=== PATIENT | female | born 1990 | race Caucasian/White ===

== ENCOUNTER → 2017-06-07 08:51 | Outpatient (CLI) | payer OTHER, SELFPAY ==
[2017-06-07 11:20] LABS: Glucose Challenge Gest 1H 50g 68 mg/dL (70-140)
[2017-06-07 11:43] LABS: Hematocrit 37.2 % (37-47); Hemoglobin 12.5 g/dl (12.0-15.0); Mean Corp Hgb Conc 33.6 g/gl (32-36); Mean Corpuscular Hgb 31.7 pg (27.0-32.0); Mean Corpuscular Volume 94.4 fL (81-99); Mean Platelet Vol. 10.7 fl (6.2-12.0); Platelet Count 161 K/mm3 (150-450); RBC Distribution Width CV 13.4 % (11.6-14.6); RBC Distribution Width SD 44.8 fl (35.1-43.9); Red Blood Count 3.94 M/mm3 (4.2-5.4); White Blood Count 5.9 K/mm3 (4.4-11.0)
[2017-06-07 11:47] LABS: Scan Indicated on CBC? Y/N NO
== END ==
PROVIDERS: Visit Provider Obstetrics & Gynecology
DX: Z34.83 Encounter for supervision of other normal pregnancy, third trimester (principal)
CPT/HCPCS: 36415; 82950; 85027; 86850

== ENCOUNTER → 2017-08-04 10:41 | Outpatient (CLI) | payer OTHER, SELFPAY ==
[2017-08-04 15:58] LABS: Group B Strep DNA By PCR Negative (Negative); Internal Control PASS; Probe Check PASS; Specimen Processing Control PASS
== END ==
PROVIDERS: Visit Provider Obstetrics & Gynecology
DX: Z36.85 Encounter for antenatal screening for Streptococcus B (principal)
CPT/HCPCS: 87081; 87653

== ENCOUNTER 2017-08-21 05:00 | Inpatient (IN) | payer SELFPAY ==
[2017-08-21 05:10] VITALS: BMI 25.0
[2017-08-21] MEDS: Ondansetron 4 MG/2 ML Vial IV (05:35)
[2017-08-21 05:38] LABS: Hematocrit 34.6 % (37-47); Mean Corp Hgb Conc 34.7 g/gl (32-36); Mean Corpuscular Volume 92.3 fL (81-99); Mean Platelet Vol. 10.7 fl (6.2-12.0); Platelet Count 156 K/mm3 (150-450); RBC Distribution Width CV 13.5 % (11.6-14.6); RBC Distribution Width SD 45.3 fl (35.1-43.9); Red Blood Count 3.75 M/mm3 (4.2-5.4); Scan Indicated on CBC? Y/N NO; White Blood Count 8.7 K/mm3 (4.4-11.0)
--- NOTE | 2017-08-21 07:41 | PN_ITS ---
Progress Note /1 on RN recheck EFM Category I tracing. [facility] A/P: 38 6/7 wk labor. Going natural. Up to walk in room briefly. Encouraged to stay close to bed, room. Telemetry d/t stage of labor. Anticipate
[2017-08-21] MEDS: Oxytocin 30 units/NS 500 ml 30 UNITS/500 ML IV.SOLN 334 UNITS IV (08:14)
--- NOTE | 2017-08-21 08:19 | PCM.OB.VAG ---
Vaginal Delivery Maternal Presentation: Active Labor Amniotic Membrane Rupture Type: Artificial Amniotic Fluid Description: Clear Final OUMAR: 08/29/17 Gestational age: 38 Weeks and 6 Days Date of Procedure: 08/21/17 Pre-Operative Diagnosis: 38 6/7 wk labor Post-Operative Diagnosis: same Surgery/ Procedure Performed: Spontaneous Vaginal Delivery Type of Anesthesia: None Description of Procedure: of a martinez viable male. Ap 8/9 Over intact perineum. Head delivered NEAL. OP and nares bulb suctioned at delivery. Nuchal cord x two reduced. Shoulders delivered easily. Infant to maternal abdomen with spont cry, vigorous. Delayed cord clamping. Clamped x two and cut. Routine blood for typing collected. PP exam; 1st deg posterior vaginal laceration, small and hemostatic No repair required. Placenta delivered by spont expulsion 3V cord, normal appearing and intact with trailing membranes. Calcifications noted on placenta. EBL 200 cc Pt and infant tolerated delivery well . To recovery, stable condition. Ray Noreen counts correct x two. Presentation: Vertex, NEAL Placental Delivery Description: Spontaneous Placenta Disposition: [facility] Cord Vessel Description: 3 Vessels Nuchal Cord Compression: Without compression Cord Entanglement: Around neck x 2, loose Estimated Blood Loss: 200 Infant A gender: Male (1 minute): 8 (5 minute): 9 Episiotomy Description: None Laceration: Midline, Perineal Extension/lac, 1st degree - not repaired, small and hemostatic. Medications given after delivery: IV Pitocin Complications: None
--- NOTE | 2017-08-21 08:28 | PCM.DCVAG ---
Discharge Diet: No Restrictions Discharge Activity: May Shower, May Take a Tub Bath May resume sexual activity in: 4-6 weeks Additional Activity Instructions:: Nothing in the vagina for 4-6 weeks. You may return to work/school in 6 weeks. Additional Instructions: If you experience any of the following, contact your healthcare provider. Bleeding that soaks a pad every hour for 2 hours Fever 100.4 or higher Unrelieved abdominal pain Problems urinating (including inability to urinate or burning while urinating). Visual changes Severe headache Flu-like symptoms Pain or redness in one of both of your breasts Pain, warmth, tenderness or swelling in your legs, especially the calf area Frequent nausea and vomiting Symptoms of depression or anxiety If you experience any of the following, call 911 or go to the nearest Emergency Room. Chest pain Problems breathing Seizure activity Partial or complete paralysis of a body part, slurred speech, weakness or drooping of the face, or a sudden inability to walk or hold your balance Allergies/Adverse Reactions: Allergies No Known Allergies Allergy (Verified 08/21/17 05:31) Medications to take at Discharge Vits [Prenatabs FA] 1 tablet PO DAILY 08/21/17 Please Follow Up With: Sharonda Rivero MD - [phone] When: Call to make an appointment with your doctor in 6 weeks. Proposed Discharge Date: 08/23/17
--- NOTE | 2017-08-21 08:29 | DCINST_ITS ---
Discharge Diet: No Restrictions Discharge Activity: May Shower, May Take a Tub Bath May resume sexual activity in: 4-6 weeks Additional Activity Instructions:: Nothing in the vagina for 4-6 weeks. You may return to work/school in 6 weeks. Additional Instructions: If you experience any of the following, contact your healthcare provider. * Bleeding that soaks a pad every hour for 2 hours * Fever 100.4 or higher * Unrelieved abdominal pain * Problems urinating (including inability to urinate or burning while urinating) . * Visual changes * Severe headache * Flu-like symptoms * Pain or redness in one of both of your breasts * Pain, warmth, tenderness or swelling in your legs, especially the calf area * Frequent nausea and vomiting * Symptoms of depression or anxiety If you experience any of the following, call 911 or go to the nearest Emergency Room. * Chest pain * Problems breathing * Seizure activity * Partial or complete paralysis of a body part, slurred speech, weakness or drooping of the face, or a sudden inability to walk or hold your balance Allergies/Adverse Reactions: Allergies No Known Allergies Allergy (Verified 08/21/17 05:31) Medications to take at Discharge Vits [Prenatabs FA] 1 tablet PO DAILY 08/21/17 Please Follow Up With: Sharonda Rivero MD - [phone] When: Call to make an appointment with your doctor in 6 weeks. Proposed Discharge Date: 08/23/17
[2017-08-21] MEDS: Oxytocin 30 units/NS 500 ml 30 UNITS/500 ML IV.SOLN 167 UNITS IV (08:45)
[2017-08-21] MEDS: 0.9% Saline Lock 10 ML Syringe IV (11:00)
[2017-08-21 14:00] VITALS: BP 126/66; PULSE 86; RESP 18; TEMP 36.9; O2SAT 96
[2017-08-21 16:20] VITALS: BP 121/70; PULSE 69; TEMP 37.1; O2SAT 97
[2017-08-21] MEDS: Prenatal Vits Tablet 1 TABLET PO (16:29)
[2017-08-21] MEDS: Naproxen 250 MG Tablet PO (16:30)
[2017-08-21 20:00] VITALS: BP 128/69; PULSE 68; RESP 16; TEMP 36.4
[2017-08-22 00:30] VITALS: BP 107/59; PULSE 58; RESP 16; TEMP 36.6
[2017-08-22 05:15] VITALS: BP 112/61; PULSE 71; RESP 16; TEMP 36.6
[2017-08-22 07:58] VITALS: BP 110/62; PULSE 71; RESP 16; TEMP 36.7
--- NOTE | 2017-08-22 08:04 | PCM.PN.OB ---
Subjective: PPD#1 Doing well. Nursing. Minimal pain. No concerns voiced. Would like to go home today if able and baby is released. asking if she should call in to cancel her visit for later in week. (advised already done for her). Objective: Standing in room, moving around and holding baby - Physical Exam General: Alert, Oriented x3, Cooperative, No apparent distress HEENT: Atraumatic Neck: Supple Neurological: Cranial nerves II-XII grossly intact Psych/Mental Status: Normal Affect Vital Signs Temp Pulse Resp BP Pulse Ox 97.8 F 71 16 112/61 97 08/22/17 05:15 08/22/17 05:15 08/22/17 05:15 08/22/17 05:15 08/21/17 16:20 Oxygen Delivery Method Room Air Weight: 66 kg Body Mass Index (BMI) 25.0 Intake and Output for Last 24 Hours 08/20/17 08/21/17 08/22/17 23:59 23:59 23:59 Output Total 600 / 600 Balance -600 / -600 Laboratory Tests Past 24 Hrs 08/21/17 08/21/17 05:10 13:15 Blood Type A NEGATIVE Antibody Screen POSITIVE H Antibody Identification ANTI-D Screen NEGATIVE Baby's Blood Type O POSITIVE Baby's VIJAYA NEGATIVE Medical Necessity - Tobacco Use Smoking Status: Never smoker
[2017-08-22] MEDS: Prenatal Vits Tablet 1 TABLET PO (10:55)
[2017-08-22 13:27] VITALS: BP 123/72; PULSE 72; RESP 16; TEMP 36.7
== END 2017-08-22 13:43 | disposition home or self-care (01) | DRG 775 ==
PROVIDERS: Admitting Provider Obstetrics & Gynecology; Visit Provider Obstetrics & Gynecology
DX: O70.0 First degree perineal laceration during delivery (principal); O69.81X0 Labor and delivery complicated by cord around neck, without compression, not applicable or unspecified; Z3A.38 38 weeks gestation of pregnancy; Z37.0 Single live birth
CPT/HCPCS: 59025; 59050; 85027; 85461; 86850; 86870; 86900; 90384; 99218; A4216; G0378; J2405; J2790

== ENCOUNTER 2024-06-12 22:14 | Emergency (ER) | payer OTHER, SELFPAY ==
[2024-06-12 22:15] VITALS: BP 109/64; PULSE 103; RESP 16; TEMP 36.7; O2SAT 97; BMI 17.8
[2024-06-13 02:15] VITALS: BP 120/80; PULSE 66; RESP 12; O2SAT 98
[2024-06-13] MEDS: Orphenadrine 60 MG/2 ML Ampul IV (02:15)
[2024-06-13] MEDS: Ketorolac 30 MG/ML Syringe IV (02:15)
[2024-06-13] MEDS: 0.9% Normal Saline (1000mL) 1,000 ML 999 ML IV (02:15)
[2024-06-13] MEDS: Metoclopramide 10 MG/2 ML Vial IV (02:15)
[2024-06-13] MEDS: DiphenhydrAMINE 50 MG/ML Syringe IV (02:15)
--- NOTE | 2024-06-13 02:45 | EX.ED.DYSGE1 ---
HPI History of Present Illness Chief Complaint: Headache Informant: patient and spouse/S.O. Narrative Narrative: Patient is a 33-year-old female with no reported significant past medical history. She states that on Wednesday she felt that her back was sore. However she states there was no obvious trauma or excessive activity. She states that then later that day she noticed a headache along the back of her head. She states that she was able to sleep but when she awoke she noticed that the headache was still present and was now beginning to wrap around her head. She denies any sick symptoms such as fevers chills nasal congestion cough or sore throat. She states there is been no head injury. She denies any family history of brain tumor. She reports she has not taken any medication for the headache but that it has been persistent since Wednesday and therefore she comes in for evaluation [facility] Medical History no medical history Home Medications ?Medication ?Instructions ?Recorded ?Last Taken ?Type NK 06/13/24 Unknown History Allergy/AdvReac Type Severity Reaction Status Date / Time No Known Allergies Allergy Verified 06/12/24 22:17 Social History Smoking Status: Never smoker ROS ROS ED Constitutional Constitutional ED: Denies chills or fever(s) Eyes Eyes: Reports other Details: Negative photophobia ; Denies blurry vision or change in vision ENT ENT ED: Denies ear pain, rhinorrhea or sore throat Cardiovascular Cardiovascular: Denies chest pain Respiratory/Chest Respiratory/Chest: Denies cough or dyspnea Gastrointestinal Gastrointestinal: Denies abdominal pain, diarrhea, nausea or vomiting Genitourinary Genitourinary ED: Denies dysuria Musculoskeletal Musculoskeletal: Reports back pain Integumentary Denies rash Neurologic Neurologic: Reports headache(s); Denies paresthesias or weakness Hematologic/Lymphatic Hematologic/Lymphatic: Denies easy bleeding or easy bruising EXAM Physical Exam Const Vital Signs: 06/12/24 22:15 06/13/24 02:15 Temperature 98.1 F Temperature Source Oral Pulse Rate 103 H 66 Respiratory Rate 16 12 Blood Pressure 109/64 120/80 Blood Pressure Mean 79 93 Pulse Ox 97 98 Oxygen Delivery Method Room Air Room Air Positive well nourished and well developed General Appearance ED: well developed; Negative for pallor HEENT Reports moist mucous membranes HEENT Narrative: Normocephalic atraumatic Posterior pharynx but is no signs concerning for secondary infection Bilateral TMs are normal No pain with palpation over top of the maxillary frontal or ethmoid sinuses Eyes PERRL and EOMs intact bilaterally General Eye ED: Negative for scleral icterus Neck supple Neck Narrative: No nuchal rigidity or meningeal signs Resp normal respiratory effort and clear to auscultation bilaterally Cardio regular rate and regular rhythm GI normal to inspection, nondistended, normoactive bowel sounds, non-tender, non-distended and no masses Auscultation: normoactive bowel sounds Palpation: soft Extremity normal to inspection Neuro oriented x3, CN's II-XII intact bilaterally and no sensory deficits noted Neuro Narrative: GCS of 15 Cranial nerves II through XII are grossly intact without focal neurologic deficit No pronator drift no dysmetria no truncal ataxia NIH stroke scale score of 0 Sensorium / Orientation: alert Motor Exam: strength 5/5 throughout Psych mental status grossly normal Skin no rashes or lesions noted and no wounds General Skin Exam: Negative for jaundice or pallor MDM MDM MDM Narrative Medical decision making narrative: Patient arrived to the ER with stable vitals. She reported the headache came on gradually and increased over the course of hours. She denied any recent trauma and states that she has not had any sick symptoms. Differential diagnosis is for tension headache versus spontaneous subarachnoid or subdural hemorrhage versus sinus pressure/infection versus brain mass. Patient's neurologic exam is normal she denied any recent trauma and there are no signs of injury and her vitals are stable and she has no signs of infection such as meningitis or sinusitis. With the gradual onset and wrapping nature I do feel this is most likely tension headache. Therefore the patient was treated with IV fluids Toradol Benadryl Reglan and Norflex and did report resolution of her headache. On reevaluation her neurologic exam remains normal. Therefore with a normal neurologic exam stable vitals and resolution of symptoms there is no need for further intervention and she is otherwise safe for discharge History & Record Review Discussion w/independent historian: Patient and Significant other Discharge Plan Triage Chief Complaint: Headache ED Provider: Vinny Pagan Dx/Rx/DC Orders Clinical Impression: Cephalgia Instructions: ED Headache, Tension Prescriptions: No Action NK Primary Care Provider: Care Physician,No Primary Referrals: Flavio Urena, [Non-Staff] - Care Physician,No Primary [Primary Care Provider] - Activity Restrictions/Additional Instructions: Please take Tylenol and/or Motrin as needed for headache relief. Follow-up with your family doctor for repeat evaluation and return to the ER should you have any further concerns Print Language: Portuguese Disposition Disposition: Home, Self Care Discharge Date/Time: 06/13/24 03:02
== END 2024-06-13 03:02 | disposition home or self-care (01) ==
PROVIDERS: Emergency Provider Emergency Medicine; Visit Provider Emergency Medicine
DX: R51.9 Headache, unspecified (principal)
CPT/HCPCS: 96361; 96374; 96375; 99283; A4216